=== PATIENT | female | born 1990 | race Caucasian/White ===

== ENCOUNTER 2019-08-16 07:03 | Outpatient (CLI) | payer OTHER ==
[~2019-08-16 07:03] MED LIST: AMOX1TAB5; ORASEP SPRAY30 ML MM
== END 2019-08-16 16:07 | disposition home or self-care (01) ==
LOC: LAB 07:03
DX: E78.49 Other hyperlipidemia (principal); Z00.00 Encounter for general adult medical examination without abnormal findings; E55.9 Vitamin D deficiency, unspecified; R42 Dizziness and giddiness; R10.2 Pelvic and perineal pain

== ENCOUNTER 2019-11-20 12:15 | Outpatient (CLI) | payer OTHER | END 2019-11-20 12:22 | disposition home or self-care (01) | LOC: LAB 12:15 | DX: N92.0 Excessive and frequent menstruation with regular cycle (principal) ==

== ENCOUNTER 2019-11-22 12:23 | Outpatient (CLI) | payer OTHER | END 2019-11-22 12:28 | disposition home or self-care (01) | LOC: LAB 12:23 | DX: N92.0 Excessive and frequent menstruation with regular cycle (principal) ==

== ENCOUNTER 2019-12-06 07:27 | Outpatient (CLI) | payer OTHER | END 2019-12-06 08:00 | disposition home or self-care (01) | LOC: LAB 07:27 | DX: Z34.00 Encounter for supervision of normal first pregnancy, unspecified trimester (principal) ==

== ENCOUNTER → 2020-01-10 12:16 | Outpatient (CLI) | payer OTHER | END | disposition home or self-care (01) | LOC: LAB 12:16 | DX: N39.0 Urinary tract infection, site not specified (principal) ==

== ENCOUNTER 2020-02-21 07:25 | Outpatient (CLI) | payer OTHER | END 2020-02-21 07:30 | disposition home or self-care (01) | LOC: LAB 07:25 | PROVIDERS: ATTEND Obstetrics & Gynecology | DX: Z34.00 Encounter for supervision of normal first pregnancy, unspecified trimester (principal) ==

== ENCOUNTER → 2020-03-26 | Outpatient (CLI) | payer OTHER | END | disposition home or self-care (01) | LOC: PRENATAL 11:49 | PROVIDERS: ATTEND Obstetrics & Gynecology Maternal & Fetal Medicine | DX: O35.0XX1 Maternal care for (suspected) central nervous system malformation in fetus, fetus 1 (principal); O99.212 Obesity complicating pregnancy, second trimester; Z36.89 Encounter for other specified antenatal screening ==

== ENCOUNTER 2020-05-02 06:46 | Outpatient (CLI) | payer OTHER | END 2020-05-02 06:51 | disposition home or self-care (01) | LOC: LAB 06:46 | PROVIDERS: ATTEND Obstetrics & Gynecology | DX: Z34.00 Encounter for supervision of normal first pregnancy, unspecified trimester (principal); Z11.4 Encounter for screening for human immunodeficiency virus [HIV] ==

== ENCOUNTER → 2020-05-02 13:13 | Outpatient (CLI) | payer OTHER | END | disposition home or self-care (01) | LOC: LAB 13:13 | PROVIDERS: ATTEND Obstetrics & Gynecology | DX: Z34.00 Encounter for supervision of normal first pregnancy, unspecified trimester (principal) ==

== ENCOUNTER → 2020-05-07 | Outpatient (CLI) | payer OTHER | END | disposition home or self-care (01) | LOC: PRENATAL 13:00 | PROVIDERS: ATTEND Obstetrics & Gynecology Maternal & Fetal Medicine | DX: O26.843 Uterine size-date discrepancy, third trimester (principal); O99.213 Obesity complicating pregnancy, third trimester; O26.613 Liver and biliary tract disorders in pregnancy, third trimester; Z36.89 Encounter for other specified antenatal screening; Z3A.28 28 weeks gestation of pregnancy ==

== ENCOUNTER 2020-05-29 08:01 | Outpatient (CLI) | payer OTHER | END 2020-05-29 08:03 | disposition home or self-care (01) | LOC: LAB 08:01 | PROVIDERS: ATTEND Obstetrics & Gynecology | DX: Z34.00 Encounter for supervision of normal first pregnancy, unspecified trimester (principal) ==

== ENCOUNTER → 2020-05-30 | Outpatient (CLI) | payer OTHER ==
[~2020-05-30] MED LIST changes: +ACTIGALL300 MG PO; +MULTIGEN PLUS1 EACH PO
== END | disposition home or self-care (01) ==
LOC: PPH VACUNA 09:00
DX: Z23 Encounter for immunization (principal)

== ENCOUNTER → 2020-06-04 | Outpatient (CLI) | payer OTHER ==
[~2020-06-04] MED LIST changes: -ACTIGALL300 MG PO; -MULTIGEN PLUS1 EACH PO
== END | disposition home or self-care (01) ==
LOC: PRENATAL 13:00
PROVIDERS: ATTEND Obstetrics & Gynecology Maternal & Fetal Medicine
DX: O26.843 Uterine size-date discrepancy, third trimester (principal); O99.213 Obesity complicating pregnancy, third trimester; O26.613 Liver and biliary tract disorders in pregnancy, third trimester; Z36.89 Encounter for other specified antenatal screening; Z3A.32 32 weeks gestation of pregnancy

== ENCOUNTER 2020-06-11 11:41 | Outpatient (CLI) | payer OTHER | END 2020-06-11 14:41 | disposition home or self-care (01) | LOC: LAB 11:41 | PROVIDERS: ATTEND Obstetrics & Gynecology | DX: Z34.00 Encounter for supervision of normal first pregnancy, unspecified trimester (principal) ==

== ENCOUNTER 2020-06-18 17:58 | Outpatient (CLI) | payer OTHER | END 2020-06-18 17:59 | disposition home or self-care (01) | LOC: LAB 17:58 | PROVIDERS: ATTEND Obstetrics & Gynecology | DX: O26.619 Liver and biliary tract disorders in pregnancy, unspecified trimester (principal) ==

== ENCOUNTER → 2020-06-26 15:01 | Outpatient (CLI) | payer OTHER | END | disposition home or self-care (01) | LOC: LAB 14:52 | PROVIDERS: ATTEND Obstetrics & Gynecology | DX: Z34.00 Encounter for supervision of normal first pregnancy, unspecified trimester (principal) ==

== ENCOUNTER 2020-07-03 15:00 | Outpatient (CLI) | payer OTHER ==
[~2020-07-03 15:00] MED LIST changes: -MULTIGEN PLUS1 EACH PO
[2020-07-08] MEDS ORDERED: MULTIGEN PLUS1 EACH PO (08:24)
== END 2020-07-03 18:00 | disposition home or self-care (01) ==
LOC: LAB
PROVIDERS: ATTEND Obstetrics & Gynecology
DX: Z34.00 Encounter for supervision of normal first pregnancy, unspecified trimester (principal)

== ENCOUNTER → 2020-07-03 | Outpatient (CLI) | payer OTHER ==
[~2020-07-03] MED LIST changes: +MULTIGEN PLUS1 EACH PO
== END | disposition home or self-care (01) ==
LOC: PRENATAL 13:00
PROVIDERS: ATTEND Obstetrics & Gynecology Maternal & Fetal Medicine
DX: O26.843 Uterine size-date discrepancy, third trimester (principal); O99.213 Obesity complicating pregnancy, third trimester; O26.613 Liver and biliary tract disorders in pregnancy, third trimester; Z36.89 Encounter for other specified antenatal screening; Z3A.36 36 weeks gestation of pregnancy

== ENCOUNTER 2020-07-08 08:51 | Inpatient (IN) | payer OTHER ==
[~2020-07-08] VITALS: Ht 165.1 cm; Wt 2.3 kg
[~2020-07-08 08:51] MED LIST changes: +MULTIGEN PLUS1 EACH PO
[2020-07-10] MEDS ORDERED: ACTIGALL300 MG PO (08:07)
== END 2020-07-12 10:17 | disposition home or self-care (01) | DRG 788 ==
LOC: O/R 07-10 07:36 → OB/GYN 07-10 07:36
PROVIDERS: ADMIT Obstetrics & Gynecology; ATTEND Obstetrics & Gynecology
PROC: 4A0HXFZ Measurement of Products of Conception, Cardiac Rhythm, External Approach (ICD-10-PCS; 2020-07-10)
PROC: 10D00Z1 Extraction of Products of Conception, Low, Open Approach (ICD-10-PCS; principal; 2020-07-10 09:15)
DX: O32.8XX0 Maternal care for other malpresentation of fetus, not applicable or unspecified (principal); Z3A.37 37 weeks gestation of pregnancy; Z37.0 Single live birth

== ENCOUNTER 2021-06-06 15:00 | Outpatient (CLI) | payer OTHER ==
[~2021-06-06 15:00] MED LIST changes: +ACTIGALL300 MG PO
== END 2021-06-06 15:30 | disposition home or self-care (01) ==
LOC: PPH VACUNA 15:00
PROVIDERS: ATTEND Emergency Medicine Pediatric Emergency Medicine
DX: Z23 Encounter for immunization (principal)

== ENCOUNTER 2021-09-09 12:40 | Outpatient (CLI) | payer OTHER | END 2021-09-09 12:44 | disposition home or self-care (01) | LOC: SONOGRAMA 12:40 | PROVIDERS: ATTEND Surgery | DX: N60.11 Diffuse cystic mastopathy of right breast (principal); N60.12 Diffuse cystic mastopathy of left breast ==

== ENCOUNTER → 2021-09-16 07:44 | Outpatient (CLI) | payer OTHER | END | disposition home or self-care (01) | LOC: LAB 07:44 | PROVIDERS: ATTEND Emergency Medicine Pediatric Emergency Medicine | DX: Z20.828 Contact with and (suspected) exposure to other viral communicable diseases (principal) ==

== ENCOUNTER 2021-10-15 08:00 | Outpatient (CLI) | payer OTHER | END 2021-10-15 08:30 | disposition home or self-care (01) | LOC: PPH VACUNA 08:00 | PROVIDERS: ATTEND Emergency Medicine Pediatric Emergency Medicine | DX: Z23 Encounter for immunization (principal) | CPT/HCPCS: 90686; G0008 ==

== ENCOUNTER 2022-01-15 08:51 | Emergency (ER) | payer OTHER ==
[~2022-01-15] VITALS: Ht 167.6 cm; Wt 98.9 kg
[2022-01-15] MEDS ORDERED: KETO10TA2 PO (11:42)
[2022-01-15] MEDS ORDERED: NORFLEX100MG PO (11:42)
== END 2022-01-15 12:59 | disposition home or self-care (01) ==
LOC: ER 08:51
DX: S30.0XXA Contusion of lower back and pelvis, initial encounter (principal); S10.83XA Contusion of other specified part of neck, initial encounter; S20.219A Contusion of unspecified front wall of thorax, initial encounter; S40.012A Contusion of left shoulder, initial encounter; S80.01XA Contusion of right knee, initial encounter; V43.62XA Car passenger injured in collision with other type car in traffic accident, initial encounter; Y93.89 Activity, other specified; Y92.488 Other paved roadways as the place of occurrence of the external cause; Z88.1 Allergy status to other antibiotic agents

== ENCOUNTER 2022-06-06 08:00 | Outpatient (CLI) | payer OTHER ==
[~2022-06-06 08:00] MED LIST changes: +KETO10TA2 PO; +METAXALONE800 MG PO; +NORFLEX100MG PO
== END 2022-06-06 08:05 | disposition home or self-care (01) ==
LOC: PPH VACUNA 08:00
PROVIDERS: ATTEND Emergency Medicine Pediatric Emergency Medicine
DX: Z23 Encounter for immunization (principal)

== ENCOUNTER → 2022-06-18 06:41 | Outpatient (CLI) | payer OTHER | END | disposition home or self-care (01) | LOC: LAB 06:41 | PROVIDERS: ATTEND Internal Medicine | DX: E55.9 Vitamin D deficiency, unspecified (principal); Z13.0 Encounter for screening for diseases of the blood and blood-forming organs and certain disorders involving the immune mechanism; Z13.29 Encounter for screening for other suspected endocrine disorder ==

== ENCOUNTER 2022-06-25 11:23 | Outpatient (CLI) | payer OTHER | END 2022-06-25 11:26 | disposition home or self-care (01) | LOC: SONOGRAMA 11:23 | PROVIDERS: ATTEND Surgery | DX: N60.11 Diffuse cystic mastopathy of right breast (principal) ==

== ENCOUNTER 2022-09-08 09:15 | Outpatient (CLI) | payer OTHER | END 2022-09-08 09:49 | disposition home or self-care (01) | LOC: SONOGRAMA 09:15 | PROVIDERS: ATTEND Internal Medicine Infectious Disease | DX: E04.1 Nontoxic single thyroid nodule (principal) ==

== ENCOUNTER 2023-04-02 07:03 | Outpatient (CLI) | payer OTHER | END 2023-04-02 07:07 | disposition home or self-care (01) | LOC: LAB 07:03 | DX: R10.2 Pelvic and perineal pain (principal); N39.0 Urinary tract infection, site not specified ==

== ENCOUNTER 2023-06-30 08:06 | Outpatient (CLI) | payer OTHER | END 2023-06-30 08:08 | disposition home or self-care (01) | LOC: SONOGRAMA 08:06 | PROVIDERS: ATTEND Surgery | DX: N60.11 Diffuse cystic mastopathy of right breast (principal); N60.12 Diffuse cystic mastopathy of left breast ==

== ENCOUNTER 2023-07-01 14:05 | Outpatient (CLI) | payer OTHER | END 2023-07-01 14:15 | disposition home or self-care (01) | LOC: PPH VACUNA 14:05 | PROVIDERS: ATTEND Emergency Medicine Pediatric Emergency Medicine | DX: Z23 Encounter for immunization (principal) | CPT/HCPCS: 90686; G0008 ==

== ENCOUNTER 2023-12-13 07:02 | Outpatient (CLI) | payer OTHER | END 2023-12-13 07:09 | disposition home or self-care (01) | LOC: RAD 07:02 | DX: M99.01 Segmental and somatic dysfunction of cervical region (principal); M99.02 Segmental and somatic dysfunction of thoracic region ==

== ENCOUNTER 2024-11-03 07:52 | Outpatient (CLI) | payer OTHER | END 2024-11-03 08:10 | disposition home or self-care (01) | LOC: SONOGRAMA 07:52 | PROVIDERS: ATTEND Obstetrics & Gynecology | DX: N20.0 Calculus of kidney (principal) ==

== ENCOUNTER 2024-11-29 16:14 | Outpatient (CLI) | payer OTHER | END 2024-11-29 16:16 | disposition home or self-care (01) | LOC: LAB 16:14 | DX: J11.1 Influenza due to unidentified influenza virus with other respiratory manifestations (principal); Z20.828 Contact with and (suspected) exposure to other viral communicable diseases ==

== ENCOUNTER 2025-01-12 07:30 | Outpatient (CLI) | payer OTHER ==
[2025-01-12 07:59] LABS: PH,URINE 5.5 (5.0-8.0); URINE APPEARANCE Clear; URINE BILIRRUBIN Negative (NEGATIVE); URINE BLOOD Negative; URINE COLOR Yellow; URINE GLUCOSE Negative (NEGATIVE); URINE KETONE Negative (NEGATIVE); URINE LEUKOCYTE Small; URINE NITRATE Negative; URINE PROTEIN Negative (NEGATIVE); URINE UROBILINOGEN 0.2 E.U./dl
[2025-01-12 08:02] LABS: URINE BACTERIA 458.7 uL (0.0-1933); URINE EPITHELIAL CELLS 3.9 uL (0.0-38.8); URINE RBC 6.6 uL (0.0-20.8); URINE WBC 13.9 uL (0.0-23.2)
[2025-01-12 08:03] LABS: HEMOGLOBIN 13.6 g/dL (12.0-15.00); MEAN CELL VOLUME 87.2 fL (80.00-100.00); MEAN CORPUSCULAR HEMOGLOBIN 29.7 pg (27.00-32.0); PLATELET COUNT 345 K/uL (150-450); RED BLOOD COUNT 4.59 M/uL (4.00-6.00); RED CELL DISTRIBUTION WIDTH 14.1 % (11.5-14.5)
[2025-01-12 09:37] LABS: BILIRUBIN TOTAL 0.29 mg/dL (0.3-1.2); CALCIUM 8.9 mg/dL (8.5-10.1); CHOL HDL RATIO 2.8 (0-5.0); CREATININE SERUM 0.76 mg/dL (0.55-1.02); FREE TRIODOTIRONINE 2.92 pg/ml (2.18-3.98); GFR 87.11; GLOBULINA 3.4 G/DL (2.4-3.5); POTASSIUM 4.85 mEq/L (3.5-5.1); TOTAL PROTEIN 7.4 gm/dL (6.4-8.2); TSH 1.23 uIU/mL (0.358-3.74)
[2025-01-14 09:08] LABS: ANTI THYROID PEROXIDASE 17 IU/mL (0-34)
[2025-01-16 01:07] LABS: HEPATITIS A ANTIBODY IGG Negative (Negative); HEPATITIS B SURFACE ANTIBODY Reactive (.); HEPATITIS C VIRUS ANTIBODY Non Reactive (Non Reactive)
== END 2025-01-12 15:16 | disposition home or self-care (01) ==
LOC: LAB 07:30
DX: R94.6 Abnormal results of thyroid function studies (principal); E86.0 Dehydration; E61.1 Iron deficiency; N39.0 Urinary tract infection, site not specified; E88.819 Insulin resistance, unspecified; R73.9 Hyperglycemia, unspecified; E78.00 Pure hypercholesterolemia, unspecified; E55.9 Vitamin D deficiency, unspecified; A64 Unspecified sexually transmitted disease; B19.9 Unspecified viral hepatitis without hepatic coma

== ENCOUNTER → 2025-01-18 | Outpatient (CLI) | payer OTHER | END | disposition home or self-care (01) | LOC: SONOGRAMA 07:35 | PROVIDERS: ATTEND Physical Medicine & Rehabilitation | DX: M54.2 Cervicalgia (principal); M54.50 Low back pain, unspecified; R10.10 Upper abdominal pain, unspecified ==

== ENCOUNTER → 2025-02-01 07:16 | Outpatient (CLI) | payer OTHER | END | disposition home or self-care (01) | LOC: MRI 07:16 | PROVIDERS: ATTEND Physical Medicine & Rehabilitation | DX: M54.6 Pain in thoracic spine (principal) | CPT/HCPCS: 72146 ==